=== PATIENT | male | born 1990 | race Caucasian/White ===

== ENCOUNTER 2021-07-06 23:09 | Emergency (ER) | payer BC, OTHER ==
[~2021-07-06] VITALS: Ht 188 cm; Wt 75.0 kg
[2021-07-07 01:53] LABS: BASOPHILS # (AUTO) 0.1 X10'3 (0-0.2); BASOPHILS % (AUTO) 0.8 % (0-1); EOSINOPHILS # (AUTO) 0.1 X10'3 (0-0.9); EOSINOPHILS % (AUTO) 1.2 % (0-6); HEMATOCRIT 39.4 % (42.0-52.0); HEMOGLOBIN 13.5 g/dl (14.0-17.9); LYMPHOCYTES # (AUTO) 1.6 X10'3 (1.1-4.8); LYMPHOCYTES % (AUTO) 16.8 % (21-51); MEAN CORPUSCULAR HEMOGLOBIN 29.7 PG (27.0-31.0); MEAN CORPUSCULAR HGB CONC 34.3 g/dL (33.0-36.5); MEAN CORPUSCULAR VOLUME 86.4 FL (78-98); MEAN PLATELET VOLUME 8.1 FL (7.4-10.4); MONOCYTES # (AUTO) 0.9 X10'3 (0-0.9); MONOCYTES % (AUTO) 9.7 % (2-12); NEUTROPHILS # (AUTO) 6.9 X10'3 (1.8-7.7); NEUTROPHILS % (AUTO) 71.5 % (42-75); PLATELET COUNT 282 X10'3 (140-440); RED BLOOD COUNT 4.56 X10'6 (4.70-6.10); WHITE BLOOD COUNT 9.7 X10'3 (4.5-11.0)
[2021-07-07 02:00] LABS: ALBUMIN 4.3 G/DL (3.4-5.0); ANION GAP 5 (8-16); BLOOD UREA NITROGEN 18 MG/DL (7-18); CALCIUM 8.8 MG/DL (8.5-10.1); CHLORIDE 109 MMOL/L (99-107); CREATININE 1.06 MG/DL (0.60-1.10); GLUCOSE 87 MG/DL (70-104); POTASSIUM 4.6 MMOL/L (3.5-5.1); SODIUM 145 MMOL/L (135-145); TOTAL CARBON DIOXIDE 30.6 MMOL/L (24-32); eGFR 82 ML/MIN
[2021-07-07 02:04] LABS: PARTIAL THROMBOPLASTIN TIME 25 SECONDS (22-32)
[2021-07-07] MEDS ORDERED: ondansetron/PF 4mg/2ml inj IV ONE (06:05)
[2021-07-07] MEDS ORDERED: morphine 4 MG/ML inj SYRINge IV ONE (06:05)
[2021-07-07 06:43] VITALS: BP 111/74
== END 2021-07-07 06:47 ==
LOC: ER 23:11
DX: S14.109A Unspecified injury at unspecified level of cervical spinal cord, initial encounter (principal); Z20.822 Contact with and (suspected) exposure to COVID-19; M54.2 Cervicalgia; R53.1 Weakness; X58.XXXA Exposure to other specified factors, initial encounter; Y93.89 Activity, other specified; Y92.89 Other specified places as the place of occurrence of the external cause; Y99.8 Other external cause status
CPT/HCPCS: 36415; 70450; 72050; 72125; 80048; 85025; 85610; 85730; 87635; 96374; 96375; 99291; C9803; J2270; J2405